=== PATIENT | male | born 1975 | race Caucasian/White ===

== ENCOUNTER 2017-04-23 13:55 | Outpatient (CLI) | payer BC ==
[~2017-04-23 13:55] MED LIST: IOPAMIDOL-300 100 ML VIAL ONE; IOPAMIDOL-300 50 ML VIAL ONE
[2017-04-23] MEDS ORDERED: IOPAMIDOL-300 50 ML VIAL PO ONE (14:07)
[2017-04-23] MEDS ORDERED: IOPAMIDOL-300 100 ML VIAL IVP ONE (14:07)
--- NOTE | 2017-05-04 10:11 | CT Report ---
EXAM: CT ABDOMEN AND PELVIS WITH CONTRAST EXAM DATE: 04/23/2017 03:11 PM. CLINICAL HISTORY: 42-year-old male with persistent left inguinal pain. COMPARISONS: Contrast-enhanced pelvic CT of 06/25/2015. Noncontrast abdomen and pelvic CT of 12/06/19. TECHNIQUE: Routine helical CT imaging was performed through the abdomen and pelvis. IV contrast: 100M L ISOVUE 300. Enteric contrast: Yes. Reconstructions: Coronal and sagittal. In accordance with CT protocol optimization, one or more of the following dose reduction techniques w ere utilized for this exam: automated exposure control, adjustment of mA and/or KV based on patient s ize, or use of iterative reconstructive technique. FINDINGS: Lung Bases: Unremarkable. Liver: Mild to moderate diffuse fatty liver. Normal size and contour. No mass or cyst. Gallbladder/Bile Ducts: Contracted gallbladder. No gallstones, wall thickening or dilated bile ducts. Spleen: Upper normal size at 13 cm, similar to prior exams. No mass or cyst. Pancreas: Normal. Adrenal Glands: Normal. Kidneys: Ovoid nonobstructing 8 mm calculus lower pole left kidney, chronic and stable. No additional renal calculi. Benign-appearing round simple cyst lower pole right kidney 3.6 cm in diameter, increa sed in size from 1.7 cm in diameter on November 2012 exam. No solid mass involving either kidney. No hydr onephrosis or hydroureter. Ureters are of normal course and caliber. Peritoneal Cavity/Bowel: Mild diverticulosis of the distal left and sigmoid colon without inflammator y change, mildly progressive from prior studies. No obstruction or inflammatory bowel disease. No melly e fluid, free air or adenopathy. No masses or acute inflammatory process. The appendix and terminal i leum are well visualized and normal. Pelvic Organs: Urinary bladder unremarkable. Prostate mildly enlarged. No free fluid or lymphadenopat hy. Probable scar tissue in the left groin region suggesting possible prior inguinal hernia repair. This is similar to prior study of June 2015 and not present on earlier exam of November 2012. No definite hernia noted at this time. Vasculature: No aneurysms or other significant abnormality. Bones: Unremarkable for age. No acute process or metastatic disease. Other: None. IMPRESSION: Increased density in the left inguinal region suggesting prior left inguinal hernia repai r without evidence of recurrent hernia. If the patient has not had surgery in this area, further eval uation with left inguinal ultrasound is recommended to assess for possible hernia. No evident bowel i nvolvement. Mild to moderate diffuse fatty liver. Mild splenomegaly, stable. Nonobstructing 7 mm calculus lower pole left kidney. No additional renal or ureteral calculi. Mild diverticulosis of the distal left and sigmoid colon without inflammatory change. [facility] Referring Provider Line: [phone] SITE ID: [id number]
== END 2017-04-23 13:56 | disposition home or self-care (01) ==
LOC: DI 13:55
PROVIDERS: ATTEND Surgery
DX: K76.0 Fatty (change of) liver, not elsewhere classified (principal); N20.0 Calculus of kidney; R16.1 Splenomegaly, not elsewhere classified; K57.30 Diverticulosis of large intestine without perforation or abscess without bleeding
CPT/HCPCS: 74177; Q9967

== ENCOUNTER 2017-04-29 14:26 | Outpatient (CLI) | payer BC | END 2017-04-29 14:27 | disposition home or self-care (01) | LOC: SC 14:26 | PROVIDERS: ATTEND Specialist | DX: G47.30 Sleep apnea, unspecified (principal); R53.83 Other fatigue; R51 Headache; R06.83 Snoring; R61 Generalized hyperhidrosis; E66.9 Obesity, unspecified; Z68.30 Body mass index [BMI] 30.0-30.9, adult | CPT/HCPCS: 99205; 99212 ==

== ENCOUNTER 2017-05-28 11:07 | Outpatient (CLI) | payer BC ==
--- NOTE | 2017-05-28 15:33 | XRAY Report ---
DATE OF SERVICE: 05/28/2017 THREE VIEW CERVICAL SPINE: 05/28/2017 CLINICAL INDICATION: Neck pain. FINDINGS: AP, lateral, and odontoid views of the cervical spine demonstrate normal height and alignment of the vertebral bodies. The disk spaces are preserved. There is no evidence of fracture or subluxation. The prevertebral soft tissues are unremarkable. IMPRESSION: NORMAL CERVICAL SPINE. TD: 05/28/2017 16:32
== END 2017-05-28 11:08 | disposition home or self-care (01) ==
LOC: DI 11:07
PROVIDERS: ATTEND Family Medicine
DX: M54.2 Cervicalgia (principal)
CPT/HCPCS: 72040

== ENCOUNTER 2017-06-15 10:23 | Outpatient (CLI) | payer BC | END 2017-06-15 10:24 | disposition home or self-care (01) | LOC: SC 10:23 | PROVIDERS: ATTEND Nurse Practitioner Family | DX: G47.33 Obstructive sleep apnea (adult) (pediatric) (principal) | CPT/HCPCS: 99212; 99214 ==

== ENCOUNTER 2022-10-13 17:10 | Outpatient (CLI) | payer BC | END 2022-10-13 17:11 | disposition left against medical advice (07) | LOC: EMS 17:10 | DX: R07.89 Other chest pain (principal); R00.2 Palpitations ==

== ENCOUNTER 2023-01-28 11:59 | Outpatient (CLI) | payer BC ==
[2023-01-28 17:50] LABS: ALBUMIN 4.9 g/dL (3.2-5.5); ALKALINE PHOSPHATASE 74 IU/L (42-121); ALT ALANINE AMINOTRANSFERASE 28 IU/L (10-60); AST ASPARTATE AMINOTRANSFERASE 25 IU/L (10-42); BILIRUBIN,TOTAL 0.9 mg/dL (0.2-1.0); BUN - BLOOD UREA NITROGEN 19 mg/dL (6-20); CALCIUM 9.8 mg/dL (8.5-10.3); CARBON DIOXIDE - CO2 32 mmol/L (21-32); CHLORIDE 102 mmol/L (101-111); CHOL/HDL RATIO 7.4 (<5.0); CHOLESTEROL 223 mg/dL; CREATININE 0.9 mg/dL (0.6-1.3); GFR - MDRD 89 (>89); GLUCOSE 110 mg/dL (74-104); HDL CHOLESTEROL 30 mg/dL; LDL CHOLESTEROL,CALCULATED 115 mg/dL; LDL/HDL RATIO 3.8 (<3.6); POTASSIUM 4.1 mmol/L (3.5-4.5); SODIUM 138 mmol/L (135-145); TOTAL PROTEIN 7.3 g/dL (6.4-8.9); TRIGLYCERIDES 389 mg/dL (48-352); VLDL CHOLESTEROL 78 mg/dL
[2023-01-28 18:06] LABS: THYROID STIMULATING HORMONE 0.66 uIU/mL (0.34-5.60)
[2023-01-28 18:37] LABS: FECAL OCCULT BLOOD (FIT) NEGATIVE (NEGATIVE)
[2023-01-28 20:50] LABS: ESTIMATED AVERAGE GLUCOSE 97 mg/dL (70-100)
== END 2023-01-28 12:00 | disposition home or self-care (01) ==
LOC: LAB.N 11:59
PROVIDERS: ATTEND Family Medicine
DX: E78.5 Hyperlipidemia, unspecified (principal); F41.9 Anxiety disorder, unspecified; R00.2 Palpitations; Z12.11 Encounter for screening for malignant neoplasm of colon
CPT/HCPCS: 36415; 80053; 80061; 82274; 83036; 83721; 84443